=== PATIENT | female | born 1955 | race Caucasian/White ===

== ENCOUNTER → 2017-05-14 | Outpatient (CLI) | payer BC ==
[~2017-05-14] MED LIST: CALCIUM600 M1 PO; CARDIZEM CD 18180 MG PO; CRESTOR 10MG10 MG PO; FOLIC ACID 40400 MCG PO; GLUCOSAMINE & C1 CAP PO; MUCINEX1200 MG PO; PRILOSEC 20MG20 MG PO; REGLAN 10MG10 MG/TAB PO; SALINE NASAL 4444 ML NS; SENOKOT8.6 MG PO; SINGULAIR 110 MG/TAB PO; SLOW FE45 MG PO; SYNTHROID0.137 MG PO; TYLENOL 500MG500 MG PO; VITAMIN C500 MG PO; VITAMIN D32000 IU PO
== END ==
LOC: MC.RAD 11:30
DX: Z12.31 Encounter for screening mammogram for malignant neoplasm of breast (principal)

== ENCOUNTER → 2018-05-15 | Outpatient (CLI) | payer MEDICARE, BC | LOC: MC.RAD 14:07 | DX: Z12.31 Encounter for screening mammogram for malignant neoplasm of breast (principal); N64.89 Other specified disorders of breast ==

== ENCOUNTER → 2018-05-23 | Outpatient (CLI) | payer MEDICARE, BC | LOC: MC.RAD 13:50 | DX: R92.2 Inconclusive mammogram (principal) ==

== ENCOUNTER → 2018-05-29 | Outpatient (CLI) | payer MEDICARE, BC | LOC: MC.RAD 08:30 | DX: N64.89 Other specified disorders of breast (principal); Z98.82 Breast implant status ==

== ENCOUNTER 2018-07-02 06:51 | Day surgery (SDC) | payer MEDICARE, BC ==
[~2018-07-02] VITALS: Ht 167.6 cm; Wt 84.0 kg
[~2018-07-02 06:51] MED LIST changes: +CALCIUM CARBON650 M2 PO; -CALCIUM600 M1 PO; -GLUCOSAMINE & C1 CAP PO; +GLUCOSAMINE/CHO1 CA4 PO
--- NOTE | 2018-07-02 07:47 | NUR ---
Initial visit; Patient thanked Tape Stringer for offering prayer and support prior to her Procedure. Tape Stringer will keep Shavonne in her prayers.
[2018-07-02] MEDS ORDERED: ATROVENT NASAL15 ML NS (07:53)
[2018-07-02] MEDS ORDERED: DYNAPEN 250MG250 MG PO (07:54)
[2018-07-02] MEDS ORDERED: ULTRAM ER200 MG PO (07:54)
[2018-07-02] MEDS ORDERED: PRINIVIL10 MG PO (07:55)
[2018-07-02] MEDS ORDERED: FLORAJEN A20 Billion PO (07:55)
--- NOTE | 2018-07-02 13:55 | NUR ---
Patient report and care given to Radha RN.
[2018-07-02 14:42] VITALS: BP 141/72; PULSE 80; TEMP 97.2
--- NOTE | 2018-07-02 14:42 | NUR ---
TO RM 1 PER CART FROM PACU. ALERT ORIENTED X3, TALKING WITH STAFF AND FAMILY. C/O INCISION PAIN 2/10. INCISIONS COVERED WITH SANCHEZ SET, CLEAN DRY INTACT. DENIES NAUSEA OR VOMITING.
[2018-07-02 15:00] VITALS: BP 142/67; PULSE 78
--- NOTE | 2018-07-02 15:00 | NUR ---
RECEIVED GRAPE JUICE AND APPLE SAUCE. SITTING UP AND TALKING WITH FAMILY
[2018-07-02] MEDS ORDERED: NORCO 325 MG-51 TAB PO (15:03)
[2018-07-02 15:15] VITALS: BP 130/74; PULSE 75
--- NOTE | 2018-07-02 15:15 | NUR ---
TOLERATING APPLESAUCE AND JUICE WELL C/O PAIN 08/11, DENIES NEED FOR PAIN MED AT THIS TIME. PATIENT WANTED TO SEE HOW MUCH PAIN SHE WAS HAVING WHEN UP AMBULATING TO BATHROOM.
[2018-07-02 15:30] VITALS: BP 130/68; PULSE 80
--- NOTE | 2018-07-02 15:30 | NUR ---
LOWERED HOB PER PATIENT REQUEST FOR COMFORT. C/O RIGHT BREAST COMFORT 07/14 RECEIVED 2ND GLASS OF GRAPE JUICE.
[2018-07-02 16:00] VITALS: BP 124/57; PULSE 83
--- NOTE | 2018-07-02 16:00 | NUR ---
UP AMBULATED TO BATHROOM. VOIDED AND TOLERATED WELL.
--- NOTE | 2018-07-02 16:15 | NUR ---
RECEIVED DISCHARGE INSTRUCTIONS AND VERBALIZED UNDERSTANDING. AT BEDSIDE AND RECEIVED INSTRUCTIONS WELL.
--- NOTE | 2018-07-02 16:29 | NUR ---
DISCHARGED PER WC BY NURSING STAFF TO PRIVATE CAR IN CARE OF -BRENDA
== END 2018-07-02 16:30 | disposition home or self-care (01) ==
LOC: SDCO 06:51
DX: C50.411 Malignant neoplasm of upper-outer quadrant of right female breast (principal); Z17.0 Estrogen receptor positive status [ER+]; E78.5 Hyperlipidemia, unspecified; M85.80 Other specified disorders of bone density and structure, unspecified site; K21.9 Gastro-esophageal reflux disease without esophagitis; E66.9 Obesity, unspecified; Z68.30 Body mass index [BMI] 30.0-30.9, adult; I10 Essential (primary) hypertension; Z87.19 Personal history of other diseases of the digestive system; Z79.899 Other long term (current) drug therapy; E89.0 Postprocedural hypothyroidism
CPT/HCPCS: A9541; J0690; J2250; J2704; J3010; J7120

== ENCOUNTER → 2019-05-16 | Outpatient (CLI) | payer MEDICARE, BC ==
[~2019-05-16] MED LIST changes: +ATROVENT NASAL15 ML NS; +DYNAPEN 250MG250 MG PO; +FLORAJEN A20 Billion PO; +NORCO 325 MG-51 TAB PO; +PRINIVIL10 MG PO; +ULTRAM ER200 MG PO
== END ==
LOC: MC.RAD 13:26
DX: Z98.890 Other specified postprocedural states (principal); Z85.3 Personal history of malignant neoplasm of breast; Z92.3 Personal history of irradiation; Z98.82 Breast implant status
CPT/HCPCS: G0279

== ENCOUNTER → 2020-05-17 | Outpatient (CLI) | payer MEDICARE, BC | LOC: MC.RAD 11:24 | DX: Z12.31 Encounter for screening mammogram for malignant neoplasm of breast (principal); N63.21 Unspecified lump in the left breast, upper outer quadrant; Z98.890 Other specified postprocedural states ==

== ENCOUNTER → 2020-05-31 | Outpatient (CLI) | payer MEDICARE, BC | LOC: MC.RAD 14:57 | DX: R59.0 Localized enlarged lymph nodes (principal) ==

== ENCOUNTER → 2021-05-19 | Outpatient (CLI) | payer MEDICARE, BC | LOC: MC.RAD 10:46 | DX: Z12.31 Encounter for screening mammogram for malignant neoplasm of breast (principal); Z98.890 Other specified postprocedural states ==

== ENCOUNTER 2022-01-30 13:22 | Outpatient (RCR) | payer MEDICARE, BC | END 2022-02-01 | disposition home or self-care (01) | LOC: WSPT | DX: M17.12 Unilateral primary osteoarthritis, left knee (principal) ==

== ENCOUNTER → 2022-09-01 | Outpatient (RCR) | payer MEDICARE, BC | END | disposition home or self-care (01) | LOC: WSPT | DX: M65.272 Calcific tendinitis, left ankle and foot (principal) ==

== ENCOUNTER → 2022-09-01 | Outpatient (RCR) | payer MEDICARE, BC | END | disposition home or self-care (01) | LOC: WSPT | DX: M77.8 Other enthesopathies, not elsewhere classified (principal); Z96.652 Presence of left artificial knee joint ==

== ENCOUNTER 2022-09-18 14:15 | Outpatient (RCR) | payer MEDICARE, BC | END 2022-10-01 | disposition home or self-care (01) | LOC: WSPT | DX: M77.8 Other enthesopathies, not elsewhere classified (principal); Z96.652 Presence of left artificial knee joint ==

== ENCOUNTER 2023-02-12 12:45 | Outpatient (RCR) | payer MEDICARE, BC | END 2023-03-03 | disposition home or self-care (01) | LOC: WSPT | DX: M62.81 Muscle weakness (generalized) (principal) ==